=== PATIENT | male | born 1970 | race Caucasian/White ===

== ENCOUNTER → 2021-02-25 | Outpatient (CLI) | payer BC ==
[~2021-02-25] MED LIST: HYDACE5325 PO; RXHYD5325 PO
== END | disposition home or self-care (01) ==
LOC: LAB 09:59 → LAB SHORT 09:59
DX: Z20.9 Contact with and (suspected) exposure to unspecified communicable disease (principal); Z20.822 Contact with and (suspected) exposure to COVID-19
CPT/HCPCS: U0003

== ENCOUNTER 2021-10-31 09:29 | Day surgery (SDC) | payer BC ==
[~2021-10-31] VITALS: Ht 190.5 cm; Wt 116.2 kg
--- NOTE | 2021-10-31 10:55 | NUR ---
10/31/21 1055 LAWRENCE ROSAS 10:35 DR. Rosales AT BEDSIDE, TIME OUT AND SITE CHECK COMPLETE. PT ON CONTINIOUS PULSE OX. TOLERATED NERVE BLOCK WELL.
== END 2021-10-31 12:52 | disposition home or self-care (01) ==
LOC: ORSCSDS 09:29
PROVIDERS: Orthopaedic Surgery
PROC: 0LS34ZZ Reposition Right Upper Arm Tendon, Percutaneous Endoscopic Approach (ICD-10-PCS; principal; 2021-10-31 10:30)
PROC: 0LQ14ZZ Repair Right Shoulder Tendon, Percutaneous Endoscopic Approach (ICD-10-PCS; principal; 2021-10-31 10:30)
PROC: 0LU14KZ Supplement Right Shoulder Tendon with Nonautologous Tissue Substitute, Percutaneous Endoscopic Approach (ICD-10-PCS; principal; 2021-10-31 10:30)
PROC: 0PB94ZZ Excision of Right Clavicle, Percutaneous Endoscopic Approach (ICD-10-PCS; principal; 2021-10-31 10:30)
PROC: 0RNJ4ZZ Release Right Shoulder Joint, Percutaneous Endoscopic Approach (ICD-10-PCS; principal; 2021-10-31 10:30)
DX: M75.111 Incomplete rotator cuff tear or rupture of right shoulder, not specified as traumatic (principal); M75.21 Bicipital tendinitis, right shoulder; M75.41 Impingement syndrome of right shoulder; M19.011 Primary osteoarthritis, right shoulder
CPT/HCPCS: A9270; C1713; J0171; J0690; J1100; J2250; J2370; J2405; J2704; J3010; J7120